=== PATIENT | female | born 1955 | race Caucasian/White ===

== ENCOUNTER 2016-09-06 08:39 | Emergency (ER) | payer MEDICARE, MEDICAID ==
[~2016-09-06 08:39] MED LIST: CETI1TAB3 PO; CYCL5TAB PO; ERGO500029 PO; OMEP40CA3 PO
[2016-09-06 08:48] VITALS: BP 118/64; PULSE 77; RESP 18; O2SAT 99
--- NOTE | 2016-09-06 09:08 | ED.REPORT ---
HPI-General Illness Date of Service Sep 06, 2016 ED Provider: Upon entering patient's room, she is hiding in the corner of the room and requests that the physician leaves, stating "please leave me alone". She subsequently requests to only talk to the nurse. Nursing Notes Stated Complaint: SLURRED SPEECH,CONFUSION Chief Complaint: Substance Abuse Nursing Notes Reviewed: Yes Allergies: Coded Allergies: lamotrigine (Verified Allergy, Intermediate, RASH, 09/06/16) latex (Verified Allergy, Intermediate, HIVES, 09/06/16) Uncoded Allergies: STEROIDS (Allergy, Unknown, 09/06/16) Scheduled Cetirizine HCl/Pseudoephedrine (Zyrtec-D Tablet) 1 Each Tab.er.12h 1 EACH PO Q12 Ergocalciferol (Vitamin D2) (Vitamin D2) 50,000 Unit Capsule 50,000 UNIT PO QW Omeprazole (Prilosec) 40 Mg Capsule.dr 40 MG PO HS Scheduled PRN Cyclobenzaprine (Cyclobenzaprine) 5 Mg Tablet 5 MG PO TID PRN PRN For Spasm General Time Seen by MD: 09:08 Past Medical History Smoking History Current Every Day Smoker, Light Tobacco Smoker Physical Exam Vital Signs Vital Signs Date Time Temp Pulse Resp B/P Pulse Ox O2 Delivery O2 Flow Rate FiO2 09/06/16 08:48 36.7 77 18 118/64 99 Room Air Discharge & Departure Referrals: Chanel Harper (PCP) Edil Morrow DO Sep 06, 2016 09:08 SHAQUILLE NOBLES Sep 06, 2016 09:11
--- NOTE | 2016-09-06 09:37 | ED.REPORT ---
HPI-General Illness Date of Service Sep 06, 2016 ED Provider: Raffy Larkin MD Patient is a 60 year old female who presents to the ED via EMS from home intoxicated. Patient states that she contacted EMS because her "phone didn't work". Unable to obtain significant history secondary to mental status . Patient smells of EtOH. She admits to taking her home medication including Flexeril. She denies any other ingestions at this time. Patient denies any current suicidal or homicidal ideation. She denies any other medical complaints at this time. Nursing Notes Stated Complaint: SLURRED SPEECH,CONFUSION Chief Complaint: Substance Abuse Nursing Notes Reviewed: Yes Allergies: Coded Allergies: lamotrigine (Verified Allergy, Intermediate, RASH, 09/06/16) latex (Verified Allergy, Intermediate, HIVES, 09/06/16) Uncoded Allergies: STEROIDS (Allergy, Unknown, 09/06/16) Scheduled Cetirizine HCl/Pseudoephedrine (Zyrtec-D Tablet) 1 Each Tab.er.12h 1 EACH PO Q12 Ergocalciferol (Vitamin D2) (Vitamin D2) 50,000 Unit Capsule 50,000 UNIT PO QW Omeprazole (Prilosec) 40 Mg Capsule.dr 40 MG PO HS Scheduled PRN Cyclobenzaprine (Cyclobenzaprine) 5 Mg Tablet 5 MG PO TID PRN PRN For Spasm General Time Seen by MD: 09:11 Chief Complaint Other (Intoxicated) Hx Obtained From: Patient Unable to Obtain Hx: Intoxicated (Limited Hx due to intoxication) Arrived By: Walk-in Sudden in Onset?: No Onset Occurred: 1 - 4 hours ago Symptom Duration: Since onset Pertinent Negative: Pt denies other symptoms Recent Healthcare: No recent doctor visit, No recent hospitalization Past Medical History Past Medical History Notes: PCP: Dr. Harper Past Medical History Reports PTSD Past Surgical History Hernia Repair Esophagogastroduodenoscopy with biopsies Smoking History Current Every Day Smoker, Light Tobacco Smoker Social History Other Social History: Good social support, Local resident Ambulatory Status Independent Review of Systems Unable to Obtain ROS Intoxicated Physical Exam Nursing note and vitals reviewed. Constitutional: Well-developed, well-nourished. Not diaphoretic. Appears intoxicated. Head: Normocephalic and atraumatic. Mouth/Throat: Oropharynx is clear and moist. No oropharyngeal exudate. Neck: Supple, no tracheal deviation. Cardiovascular: Normal rate, regular rhythm. Equal and intact distal pulses throughout. Pulmonary/Chest: Effort normal. No respiratory distress. Abdominal: Soft. No distension. There is no tenderness, rebound, or guarding. Musculoskeletal: Range of motion grossly intact, moving all extremities. No edema or tenderness appreciated. Neurological: AOx3. Grossly nonfocal exam. Strength and sensation intact and equal to bilateral upper and lower extremities. Skin: Warm and dry, no rashes or pallor appreciated. Psychiatric: Difficult to asses at this time due to intoxication. Denies suicidal or homicidal ideation. Vital Signs Vital Signs Date Time Temp Pulse Resp B/P Pulse Ox O2 Delivery O2 Flow Rate FiO2 09/06/16 08:48 36.7 77 18 118/64 99 Room Air Initial VS: Reviewed Interpretation & Diagnostics Lab Results Interpretation Result Diagram: 09/06/16 0955 09/06/16 0955 Test 09/06/16 09:55 White Blood Count 5.9th/mm3 (3.8-10.1) Red Blood Count 4.39mil/mm3 (3.90-5.20) Hemoglobin 14.9g/dL (12.0-15.6) Hematocrit 43.0% (35.0-46.0) Mean Corpuscular Volume 97.9fL (81-100) Mean Corpuscular Hemoglobin 33.9pg (27.0-35.0) Mean Corpuscular Hemoglobin Concent 34.7% (32.0-37.0) Red Cell Distribution Width 13.0% (12.3-15.4) Platelet Count 308bil/L (150-400) Hold Blue Top Tube Received (Received) Sodium Level 145mEq/L (134-144) Potassium Level 4.6mEq/L (3.5-5.2) Chloride Level 106mEq/L (97-108) Carbon Dioxide Level 25mmol/L (18-29) Blood Urea Nitrogen 11mg/dL (6-24) Creatinine 0.59mg/dL (0.57-1.00) Estimat Glomerular Filtration Rate 149mL/min (>59) Glucose Level 93mg/dL (60-99) Calcium Level 9.3mg/dL (8.5-10.1) Total Bilirubin 0.2mg/dL (0.0-1.2) Aspartate Amino Transf (AST/SGOT) 19U/L (0-50) Alanine Aminotransferase (ALT/SGPT) 13U/L (0-32) Alkaline Phosphatase 78U/L (25-165) Total Protein 7.0g/dL (6.4-8.4) Albumin 4.7g/dL (3.4-5.0) Salicylates Level < 3.0ug/mL (30-250) Acetaminophen Level < 15.0ug/mL Rx (10-25) Alcohols 231mg/dL (0-10) Lab Results Interpretation: EtOH - 231 Re-Eval/Medical Decision Med Decision/Clinical Course 60F here for alcohol intoxication. EMS brought her here because they felt she was unsafe to leave. She has no complaints. Reassuring exam. Elevated blood alcohol, otherwise unremarkable labs for now. Refused EKG or UA. Sister arrived and can monitor patient, take her home. Reasonable to d/c w/ careful return precautions, PCP f/u. Time of Eval: 11:21 Re-Evaluation/Progress Note: Pt is clinically intoxicated. Time of Eval: 12:19 Patient Status: Condition improved Re-Evaluation/Progress Note: Further history is obtained from family. She is informed of her results and plan to discharge. Counseled Regarding: Diagnosis, Lab results, Need for follow-up, When/why to return to ED Discharge & Departure Primary Impression: Alcohol intoxication Complication of substance-induced condition: uncomplicated Qualified Code: F10.120 - Alcohol abuse with intoxication, uncomplicated Disposition: Home Discharge Condition All VS Reviewed: Yes Condition: Improved Patient Instructions: Alcohol Intoxication (ED) Additional Instructions: Thank you for trusting us with your care this morning. Your alcohol level this morning was above the legal limit. I recommend that you abstain from alcohol use. Schedule a follow-up appointment with your primary care physician in the next 2- 3 days for a recheck. Continue to take your home medications as directed. Please return to the emergency department for any new or worsening conditions including any decreased consciousness, uncontrollable nausea or vomiting, or any thoughts of harming yourself or others. Referrals: Chanel Harper (PCP) Scribe Attestation Portions of this note were transcribed by Juan Dill. I, Dr. Larkin personally performed the history, physical exam and medical decision-making; I reviewed and confirmed the accuracy of the information in the transcribed note. Signed by: Sandi Monahan, 09/06/16 [id number]. copies to: Chanel Harper William B MD Sep 06, 2016 09:37 JUAN DILL Sep 06, 2016 10:09
[2016-09-06] MEDS ORDERED: 0.9% Sodium Chloride 1,000 ML IV ONE (09:38)
[2016-09-06 10:08] LABS: Mean Corpuscular Hemoglobin 33.9 pg (27.0-35.0); Mean Corpuscular Volume 97.9 fL (81-100)
[2016-09-06 12:30] VITALS: BP 130/76; PULSE 99; RESP 15; O2SAT 97
== END 2016-09-06 12:26 | disposition home or self-care (01) ==
LOC: SED 08:39 → EDBD 08:39 → SED 12:26
DX: F10.120 Alcohol abuse with intoxication, uncomplicated (principal); F17.200 Nicotine dependence, unspecified, uncomplicated; Z88.8 Allergy status to other drugs, medicaments and biological substances; Z91.040 Latex allergy status
CPT/HCPCS: 36415; 80053; 82075; 85027; 99284; G0480